=== PATIENT | male | born 1985 | race Caucasian/White ===

== ENCOUNTER 2020-05-11 21:39 | Emergency (ER) | payer BC, OTHER ==
[~2020-05-11] VITALS: Ht 180.3 cm; Wt 111.5 kg
[2020-05-11 21:41] VITALS: BP 144/77
[2020-05-11] MEDS ORDERED: LIDOCAINE-MPF 1%, 5ML ONE (22:08)
[2020-05-11] MEDS ORDERED: HYDROcodone/APAP 5/325 TABLET ONE (22:45)
[2020-05-11] MEDS ORDERED: HYDROcodone/APAP 5/325 TABLET PO ONE (23:00)
== END 2020-05-11 23:10 | disposition home or self-care (01) ==
LOC: ED 21:58
DX: K02.9 Dental caries, unspecified (principal)
CPT/HCPCS: 99283